=== PATIENT | male | born 1945 | race Caucasian/White ===

== ENCOUNTER → 2023-07-16 15:50 | Outpatient (REF) | payer MEDICARE, OTHER, SELFPAY | LOC: RAD 15:50 | PROVIDERS: ATTENDING PHYSICIAN Nurse Practitioner Family | DX: J18.0 Bronchopneumonia, unspecified organism (principal) | CPT/HCPCS: 71046 ==

== ENCOUNTER 2023-08-08 18:03 | Emergency (ER) | payer MEDICARE, OTHER, SELFPAY ==
[2023-08-08 18:07] VITALS: BP 150/88
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
[2023-08-08 20:57] VITALS: BP 156/91
== END 2023-08-08 21:01 | disposition home or self-care (01) ==
LOC: EMR 18:03
PROVIDERS: EMERGENCY PHYSICIAN Emergency Medicine; FAMILY PHYSICIAN Family Medicine
DX: S86.811A Strain of other muscle(s) and tendon(s) at lower leg level, right leg, initial encounter (principal); M79.651 Pain in right thigh; X58.XXXA Exposure to other specified factors, initial encounter; R60.0 Localized edema; I48.0 Paroxysmal atrial fibrillation; I83.93 Asymptomatic varicose veins of bilateral lower extremities; Z79.01 Long term (current) use of anticoagulants; Z79.899 Other long term (current) drug therapy; Z88.1 Allergy status to other antibiotic agents; Z91.040 Latex allergy status; Z88.5 Allergy status to narcotic agent; Z91.048 Other nonmedicinal substance allergy status
CPT/HCPCS: 99284; 93971

== ENCOUNTER → 2023-08-15 10:20 | Outpatient (REF) | payer MEDICARE, OTHER, SELFPAY ==
[2023-08-15 11:48] LABS: Erythrocyte Sed Rate 11 mm/hour (0-20)
[2023-08-15 11:54] LABS: ALT (SGPT) 30 U/L (0-50); AST (SGOT) 28 U/L (17-59); Alkaline Phosphatase 58 U/L (38-126); Blood Urea Nitrogen 13 mg/dl (9-20); Calcium 9.6 mg/dl (8.4-10.2); Carbon Dioxide 31 mmol/L (22-30); Chloride 100 mmol/L (98-107); Glucose 101 mg/dl (70-99); HDL Cholesterol 33 mg/dl; LDL Cholesterol, Calculated 60 mg/dl; Potassium 4.4 mmol/L (3.5-5.1); Sodium 137 mmol/L (135-145); Total Bilirubin 1.2 mg/dl (0.2-1.3); Total Cholesterol 115 mg/dl (50-199); Total Protein 6.4 g/dl (6.3-8.2); Triglyceride 113 mg/dl (10-149); Very Low Density Lipoprotein 22 mg/dl (0-30); eGFR > 60.00
[2023-08-15 12:11] LABS: Free T4 0.83 ng/dl (0.78-2.19)
[2023-08-15 12:25] LABS: PSA, Total - Screen 6.09 ng/ml (0.0-4.0); TSH 2.17 uIU/ml (0.47-4.68)
[2023-08-15 12:43] LABS: Glycohemoglobin (HgbA1c) 6.8 % (4.0-5.6)
[2023-08-18 01:56] LABS: IgA 219 mg/dl (70-400)
[2023-08-20 15:17] LABS: tTG IgA Antibody 5.6 EU/ml (0-19); tTG IgG Antibody 7.4 EU/ml (0-19)
== END ==
LOC: REG 10:20
PROVIDERS: ATTENDING PHYSICIAN Physician Assistant Medical; FAMILY PHYSICIAN Family Medicine
DX: R19.8 Other specified symptoms and signs involving the digestive system and abdomen (principal); Z00.00 Encounter for general adult medical examination without abnormal findings; I48.0 Paroxysmal atrial fibrillation; R73.03 Prediabetes; I10 Essential (primary) hypertension; Z79.01 Long term (current) use of anticoagulants; E78.5 Hyperlipidemia, unspecified; Z12.5 Encounter for screening for malignant neoplasm of prostate
CPT/HCPCS: 36415; 80053; 80061; 82784; 83036; 83516; 84439; 84443; 85652; 86140; G0103

== ENCOUNTER 2023-08-17 23:50 | Emergency (ER) | payer MEDICARE, OTHER, SELFPAY ==
[2023-08-18] VITALS (11 sets, daily range): BP systolic 116–179; BP diastolic 59–83; BMI 31.0
[2023-08-18] MEDS: LOW STRENGTH ASPIRIN 324 MG PO (00:04)
[2023-08-18] MEDS: NITROSTAT (SUBLINGUAL) 0.400000000000000022 MG SL (00:04)
--- NOTE | 2023-08-18 00:10 | ED.GENMED ---
History of Present Illness
General
Chief Complaint: Chest Pain
Source: patient
Time Seen by Provider: 08/18/23 00:00
Nursing documentation reviewed up to this point in time: agreed with
Travel History
Have you had any contact with someone who has COVID-19?: No
Do you have any symptoms of coronavirus? Fever > 100 degrees, chills, cough, shortness of breath, sore throat, loss of taste or smell, muscle aches, or headache?: No
History of Present Illness
History of Present Illness:
This a pleasant 78-year-old male that presents with sudden onset right-sided chest pain that was accompanied by shortness of breath. Patient states that the pain came on suddenly approximately 8 minutes prior to arrival. He reports no radiation.
Patient states that initially the pain was 8 out of 10 but over time it dropped down to 4 out of 10. Patient does have a history of atrial fibrillation and hypertension. He is unsure if he has had a myocardial infarction in the past. States that
he was feeling fine prior to the onset of pain. His drove him to the hospital.
Vital signs are stable. Patient not hypoxic
Nursing note reviewed. I agree with nursing documentation up to this point in time.
Home Meds and allergies reviewed.
NUMBER AND COMPLEXITY OF PROBLEMS ADDRESSED AT THE ENCOUNTER
� Chronic conditions affecting care: Hypertension, A-fib
� Acute Exacerbation and/or Progression of Chronic Illness: Acute illness
� Differential Diagnosis includes: Chest pain, musculoskeletal chest pain, gallbladder pain, abdominal pain, colitis, gastritis,
AMOUNT AND/OR COMPLEXITY OF DATA TO BE REVIEWED AND ANALYZED
I performed an independent evaluation of the following and my interpretation is:
EKG: Initial EKG shows normal sinus rhythm rate of 78 with right bundle branch block present. No evidence of acute ischemia present.
Repeat EKG shows normal sinus rhythm rate of 78 with right bundle branch block. Compared with previous EKG earlier tonight, similar morphology noted
CT:
X-rays:
Ultrasound:
Laboratory Studies: Initial troponin normal <0.012
Other:
Review of other/old records:
Clinical information was obtained by an independent historian:
Prescriptions/Medications Considered but not given:
Further testing considered but not performed:
RISK OF COMPLICATIONS AND/OR MORBIDITY OR MORTALITY OF PATIENT MANAGEMENT
Social determinants of health affecting care: Good Social Support, present at the bedside
Discussion with other providers:
Escalation of care including admission/observation vs risk of discharge considered:
CRITICAL CARE NOTE:
Total Time (exclusive of procedures):
Update:
Past History
Past History
ED Past Medical History: Arrthythmia (A fib)
ED Past Surgical History: Appendectomy and Orthopedic
Social History
Tobacco: Non-smoker
Drug: None
Personal:
Living: with family
Employment: Employed (Massage therapist)
Family History
Family History: Diabetes; Negative CAD or Sudden
Phy Exam
Physical Exam
Physical Exam:
Physical Exam
Vital signs and allergy list reviewed and agreed with.
GENERAL: Alert , in none apparent distress
EYE: pupils equal, EOMI, anicteric
NECK: Supple, no significant adenopathy. No masses. Trachea midline
ENT: Oropharynx is clear, mmm.
CARDIAC: Regular rate and rhythm . No M/R/G
LUNGS: Clear breath sounds bilaterally, no acute respiratory distress, no wheezes/rales/rhonchi
ABDOMEN: Soft, without focal tenderness, no r/g, no cvat. Normal BSx4q
NEUROLOGICAL: Alert and oriented, no focal neuro deficits
SKIN: Warm and dry, skin intact.
MUSCULOSKELETAL: No edema, well perfused. Moves all 4 extremities
PSYCH: Normal and appropriate interaction.
Scores
Heart Score for Chest Pain Patients
STEMI patient?: Not applicable
Course
Orders/Labs/Results
Orders:
Orders
08/17/23
Electrocardiogram (*1) Stat
Comment: DONE EMR
08/17/23 23:59
Aspirin Chewable [Low Strength Aspirin] 324 mg .ROUTE .STK-MED ONE
Nitroglycerin Sublingual [Nitrostat (Sublingual)] 0.4 mg .ROUTE .STK-MED ONE
08/18/23 00:00
EKG [Electrocardiogram (*1)] Urgent
Reason for Study: Chest Pain
Electrocardiogram (*1) Stat
Comment: DONE EMR
EKG- Treatment ONCE
08/18/23 00:02
Cardiac Monitoring- Treatment ONCE
08/18/23 00:03
Add On- LAB Urgent
Tests Added?: LIPASE
CMP [Comprehensive Metabolic Panel] Urgent
Complete Blood Count/With Diff Urgent
Lipase Urgent
Comment: ADD ON
Troponin I Urgent
Aspirin Chewable [Low Strength Aspirin] 324 mg PO NOW STA
08/18/23 00:04
Nitroglycerin Sublingual [Nitrostat (Sublingual)] 0.4 mg SL NOW STA
08/18/23 00:07
US Abdomen Complete/Upper Urgent
Comment:
Reason For Exam: RUQ abd pain
08/18/23 00:10
EKG- Treatment ONCE
08/18/23 03:00
Electrocardiogram (*1) Urgent
Reason for Study: Chest Pain
08/18/23 03:59
Troponin I Urgent
Urinalysis Reflex To Culture Urgent
Date Specimen was Collected: 08/18/23
Time Specimen was Collected: 03:54
Urine Microscopic Reflex Cult Urgent
Urine Culture Urgent
ABHILASH Source: U
Specimen Description:
Date Specimen was Collected: 08/18/23
Time Specimen was Collected: 03:54
08/18/23 04:28
CT Abd/pelvis W Iv Cont Urgent
Comment:
Reason For Exam: right sided abd pain
Abnormal Lab Results
08/18/23 08/18/23
00:03 03:59
RBC 4.69 L 10^6/uL
(4.70-6.10)
MPV 10.5 H fL
(7.4-10.4)
Abs Immat Gran (auto) 0.2 H 10^3/uL
(0-0.05)
Absolute Monos (auto) 0.8 H 10^3/uL
(0.1-0.6)
Immature Gran % 1.8 H %
(0-0.5)
Glucose 115 H mg/dl
(70-99)
Urine Ketones Trace A
(Negative)
Leukocyte Esterase Rfl Trace A
(Negative)
Urine Bacteria (Reflex) Moderate A
(Negative)
08/18/23 00:03
08/18/23 00:03
Vital Signs
Initial and Last Documented VS:
Initial Vital Signs
Pulse Resp Pulse Ox
76 18 98
08/17/23 23:52 08/17/23 23:52 08/17/23 23:52
Last Documented Vital Signs
Pulse Resp BP Pulse Ox
56 14 146/78 100
08/18/23 06:29 08/18/23 06:29 08/18/23 06:30 08/18/23 06:29
*Critical Care Note
Total Time (30-74mins, 75-104mins- exclusive of procedures): Not Applicable
Update Note
Update Note:
ULTRASOUND ABDOMEN COMPLETE
IMPRESSION:
Study is mildly limited by patient body habitus and bowel gas.
The gallbladder is unremarkable. No evidence for cholelithiasis.
Common bile duct is normal in size, measuring 4.5 mm.
Moderate to severe hepatic steatosis.
Small right renal cyst. No hydronephrosis bilaterally.
08/18/[address] ABDOMEN PELVIS WITH CONTRAST
COMPARISON: 03/18/2022
IMPRESSION:
Mild thickening of small bowel loops in the left abdomen without distention concerning for enteritis. No obstruction.
No evidence of diverticulitis or colitis. Normal appendix. No free air.
No obstructive uropathy.
Patient is resting comfortably. He has absolutely no symptoms. Negative Dumas sign. No McBurney's point tenderness. He states that his pain was in the right upper quadrant of his abdomen. 2 troponins negative. Labs essentially normal. Likely
biliary colic. Patient wishes to be discharged home. Discussed return to ER instructions with patient and . They verbalized good understanding. They will be discharged home is not stable and improved condition.
ED Attending Note
-
Portions of this chart may have been created with voice recognition software.� Occasional wrong word or��sound alike� substitutions may have occurred due to the inherent limitations of voice recognition software.
Discharge Plan
Departure
Patient Disposition: Home (Routine Discharge)
Date of Disposition: 08/18/23
Time of Disposition: 06:12
Patient with high blood pressure during this ER visit?: Yes
Condition: Good
Discharge Problem:
Abdominal pain, Biliary colic
Instructions: Gallstones (DC), Chest Pain CBC Follow Up, BLOOD PRESSURE
Prescriptions:
No Action
calcium 600 mg Capsule
600 mg PO DAILY
magnesium 500 mg Tablet
500 mg PO DAILY
ascorbic acid (vitamin C) [Vitamin C] 500 mg Tablet
500 mg PO DAILY
zinc 50 mg Capsule
50 mg PO DAILY
ferrous sulfate 27 mg iron Tablet
27 mg PO DAILY
potassium gluconate 595 mg (99 mg) Tablet
595 mg PO DAILY
cholecalciferol (vitamin D3) [Vitamin D3] 125 mcg (5,000 unit) Tablet
125 mcg PO DAILY
Centrum Silver Men 300-600-300 mcg Tablet
1 tab PO DAILY
Referrals:
Gino Morales MD [Family Provider] -
Activity Restrictions/Additional Instructions:
It was a pleasure meeting you and taking part in your care. We hope for your continued healing and wellness.
Please read discharge instructions in their entirety. However, they are for general education and may not describe your exact diagnosis at discharge. Information on your ER visit and medical conditions were discussed with you along with appropriate
follow up information...
If indicated, please take your medications as instructed and indicated on discharge paperwork.
Please schedule a follow up appointment as directed. Call to schedule an appointment
Please return to the emergency department with ANY change in, persisting, or worsening of symptoms. If any of your symptoms do not improve, or persist, or become more severe within 6-12 hours, please return to the emergency department for further
care.
Please return to the emergency department if you develop a headache, neck pain/stiffness, fever greater than 100.4F, chest pain, shortness of breath, persistent nausea, vomiting, slurred speech, difficulty walking, numbness/tingling, weakness, signs
of infection or any other symptoms that are worrisome to you.
If you have any questions or concerns please do not hesitate to call the Hospital at or E-mail me directly at [email or web address]
Interventions
Interventions:
*Risk Screen - Suicide Last Done: 08/18/23 00:10
*General Assessment Last Done: 08/18/23 00:10
*Neglect/Abuse Screening Last Done: 08/18/23 00:10
ED- Fall Risk Assessment Last Done: 08/18/23 00:10
*ED COVID-19 Vaccine History Last Done: 08/18/23 00:10
*Nursing Disposition Last Done: 08/18/23 06:37
ED- Cardiac Assessment Last Done: 08/18/23 00:10
Discharge Date and Time
Discharge Date/Time: 08/18/23 06:38
Print Language: SYRIAN
[2023-08-18 00:23] LABS: ALT (SGPT) 30 U/L (0-50); AST (SGOT) 29 U/L (17-59); Albumin 3.9 g/dl (3.5-5.0); Alkaline Phosphatase 61 U/L (38-126); Blood Urea Nitrogen 14 mg/dl (9-20); Calcium 9.8 mg/dl (8.4-10.2); Carbon Dioxide 26 mmol/L (22-30); Chloride 102 mmol/L (98-107); Estimated Creatinine Clearance 81 ml/min; Glucose 115 mg/dl (70-99); Sodium 139 mmol/L (135-145); Total Bilirubin 0.6 mg/dl (0.2-1.3); Total Protein 6.3 g/dl (6.3-8.2); eGFR > 60.00
[2023-08-18 00:29] LABS: % Basophils 0.8 % (0-2); % Eosinophils 1.8 % (0-6); % Immature Granulocytes 1.8 % (0-0.5); % Lymphocytes 31.2 % (20.5-51.1); % Monocytes 9.3 % (1.7-9.3); % Neutrophils 55.1 % (42.2-75.2); Absolute Basophils 0.1 10^3/uL (0-0.2); Absolute Eosinophils 0.2 10^3/uL (0-0.7); Absolute Immature Granulocytes 0.2 10^3/uL (0-0.05); Absolute Lymphocytes 2.8 10^3/uL (1.2-3.4); Absolute Monocytes 0.8 10^3/uL (0.1-0.6); Hematocrit 42.6 % (39.0-52.0); Hemoglobin 14.3 g/dL (13.0-18.0); Mean Corp Hgb Conc. 33.6 g/dL (33.0-37.0); Mean Corpuscular Hgb 30.5 pg (27.0-31.0); Mean Corpuscular Volume 90.8 fL (80.0-94.0); Mean Platelet Volume 10.5 fL (7.4-10.4); Nucleated Red Blood Cells % 0 % (-); Platelet Count 251 10^3/uL (130-400); Red Blood Cell Count 4.69 10^6/uL (4.70-6.10)
[2023-08-18 00:34] LABS: Troponin I < 0.012 ng/ml
[2023-08-18 00:43] LABS: Lipase 147 U/L (23-300)
[2023-08-18 04:13] LABS: Urine Albumin Trace (Neg - Trace); Urine Bilirubin Negative (Negative); Urine Character Slightly Cloudy (Clear); Urine Color Amber; Urine Glucose Negative (Negative); Urine Ketone Trace (Negative); Urine Leukocyte Trace (Negative); Urine Nitrite Negative (Negative); Urine Occult Blood Negative (Negative); Urine Specific Gravity 1.025 (<1.030); Urine Urobilinogen 1+ (Neg - 1+)
[2023-08-18 04:34] LABS: Urine Amorphous Seen; Urine Calcium Oxalate Crystals Seen; Urine Mucus Many
[2023-08-18 04:35] LABS: Urine Bacteria Moderate (Negative); Urine Red Blood Cell 0-2 /HPF (0-2)
[2023-08-18 04:36] LABS: Troponin I < 0.012 ng/ml
[2023-08-18 04:39] LABS: Urine Squamous Cell >30 /LPF (Few)
== END 2023-08-18 06:38 | disposition home or self-care (01) ==
LOC: EMR 23:50
PROVIDERS: EMERGENCY PHYSICIAN Student in an Organized Health Care Education/Training Program; FAMILY PHYSICIAN Family Medicine
DX: R10.11 Right upper quadrant pain (principal); K80.50 Calculus of bile duct without cholangitis or cholecystitis without obstruction; K76.0 Fatty (change of) liver, not elsewhere classified; N28.1 Cyst of kidney, acquired; I48.91 Unspecified atrial fibrillation; I10 Essential (primary) hypertension; Z88.1 Allergy status to other antibiotic agents; Z91.040 Latex allergy status; Z88.5 Allergy status to narcotic agent; Z91.048 Other nonmedicinal substance allergy status
CPT/HCPCS: 99285; 74177; 76700; 80053; 81003; 81015; 83690; 84484; 85025; 87086; 93005; Q9967

== ENCOUNTER → 2023-08-21 07:32 | Outpatient (REF) | payer MEDICARE, OTHER, SELFPAY ==
[2023-08-23 01:42] LABS: Fat, Fecal - Neutral Normal (Normal); Fat, Fecal - Split Normal (Normal)
[2023-08-24 07:27] LABS: Calprotectin, Fecal 12 ug/g (<=49)
[2023-08-24 08:10] LABS: Pancreatic Elastase, Fecal 556 ug/g (>=100)
== END ==
LOC: REG 07:32
PROVIDERS: ATTENDING PHYSICIAN Physician Assistant Medical
DX: R19.8 Other specified symptoms and signs involving the digestive system and abdomen (principal)
CPT/HCPCS: 82653; 82705; 83993

== ENCOUNTER 2023-11-14 09:28 | Emergency (ER) | payer MEDICARE, OTHER, SELFPAY ==
[2023-11-14 09:31] VITALS: BP 124/75
--- NOTE | 2023-11-14 09:55 | ED.SKININJ ---
HPI-Injury
General
Chief Complaint: Skin Surface Trauma
Source: patient
Exam Limitations: none
Time Seen by Provider: 11/14/23 09:54
Nursing documentation reviewed up to this point in time: agreed with
History of Present Illness-Injury
Initial Injury comments:
78-year-old male with history of HTN, A-fib on Eliquis presents with redness and swelling right lower leg past 3 days. Four days ago had an itchy spot behind right knee and scratched it. told him it looked like there was a bull's eye rash
around it and thought it may be a tick bite. The next day pt noted the swelling of the lower leg. Denies CP,SOB. Denies Fever/Chills.
Past History
Past History
ED Past Medical History: Arrthythmia (A fib)
ED Past Surgical History: Appendectomy and Orthopedic
Social History
Tobacco: Non-smoker
Alcohol: Occasional
Drug: None
Personal:
Living: with family
Employment: Employed (Massage therapist)
Family History
Family History: Diabetes; Negative CAD or Sudden
Review of Systems
Review of Systems
Allergies reviewed?: Yes
All Other Systems: ROS reviewed and negative except as documented in HPI and ROS
Constitutional: Denies fever or chills
Respiratory: Denies trouble breathing
Cardiac: Denies chest pain
ABD/GI: Denies abdominal pain or nausea
Musculoskeletal: Reports edema (swelling R lower leg); Denies joint pain
Skin: Reports other (redness right lower leg)
Neurological: Reports no symptoms
Phy Exam
Physical Exam
Physical Exam:
GENERAL: No acute distress. A&Ox3.
CONSTITUTIONAL: Afebrile.
EYES: PClear, conjunctivae normal
RESPIRATORY: Regular respirations, nonlabored, lungs clear.
CARDIOVASCULAR: Regular rate and rhythm, no murmurs, no rubs.
GI: Soft, nontender, normal BS
MUSCULOSKELETAL: Moves with ease. Well perfused.
SKIN: Warm, dry, pink, 5 mm scab R popliteal area, surrounding skin normal. Redness, tenderness and +1 swelling mid lower leg to ankle.
PSYCH: Normal mood and affect. Well kept, interactive and appropriate
NEUROLOGIC: Awake, alert and oriented. No focal neurological deficits
Course
Orders/Labs/Results
Orders:
Orders
11/14/23 10:03
US Periph Venous LOWER Ext RT Urgent
Comment:
Reason For Exam: swelling, redness
11/14/23 10:15
Complete Blood Count/With Diff Urgent
Comprehensive Metabolic Panel Urgent
Lyme Progressive Urgent
Abnormal Lab Results
11/14/23
10:15
RBC 4.66 L 10^6/uL
(4.70-6.10)
MCHC 32.9 L g/dL
(33.0-37.0)
MPV 10.6 H fL
(7.4-10.4)
Absolute Monos (auto) 0.9 H 10^3/uL
(0.1-0.6)
Monocytes % 12.3 H %
(1.7-9.3)
Glucose 117 H mg/dl
(70-99)
Total Bilirubin 1.6 H mg/dl
(0.2-1.3)
Total Protein 6.0 L g/dl
(6.3-8.2)
11/14/23 10:15
11/14/23 10:15
Vital Signs
Initial and Last Documented VS:
Initial Vital Signs
Temp Pulse Resp BP Pulse Ox
98.4 F 78 16 124/75 98
11/14/23 09:31 11/14/23 09:31 11/14/23 09:31 11/14/23 09:31 11/14/23 09:31
Last Documented Vital Signs
Temp Pulse Resp BP Pulse Ox
98.4 F 60 18 136/73 99
11/14/23 09:31 11/14/23 11:43 11/14/23 11:43 11/14/23 11:43 11/14/23 11:43
MDM/Problems Addressed
Differential Diagnosis Includes:
cellulitis, DVT, Lyme, injury with dependent edema
MDM/Problems Addressed:
78-year-old male with history of HTN, A-fib on Eliquis presents with redness and swelling right lower leg past 3 days. Four days ago had an itchy spot behind right knee and scratched it. told him it looked like there was a bull's eye rash
around it and thought it may be a tick bite. The next day pt noted the swelling of the lower leg. Denies CP,SOB. Denies Fever/Chills.
The area of the bite is 5 mm, scabbed over, no surrounding redness.
The reddened swollen area is well below this, mainly mid lower leg to ankle. Foot is not affected.
There is a tender slightly raised area mid stein pt states 'I might have' bumped it. This may have disrupted some minor blood vessels and on Eliquis micro bleeding causing dependent edema
Doubt DVT as he is anticoagulated.
CBC, CMP unremarkable.
US neg for DVT
Will treat for cellulitis, rx for Keflex sent to his pharmacy
He has compression stockings he can wear
Return signs discussed, all questions answered.
Most likely dependent edema from stein contusion, could be early cellulitis.
Lyme result pending
*Critical Care Note
Total Time (30-74mins, 75-104mins- exclusive of procedures): Not Applicable
ED Attending Note
-
Portions of this chart may have been created with voice recognition software.� Occasional wrong word or��sound alike� substitutions may have occurred due to the inherent limitations of voice recognition software.
Discharge Plan
Departure
Patient Disposition: Home (Routine Discharge)
Date of Disposition: 11/14/23
Time of Disposition: 12:14
Patient with high blood pressure during this ER visit?: No
Condition: Good
Discharge Problem:
Cellulitis of right lower extremity
Instructions: Cellulitis (Skin Infection), Adult ED
Prescriptions:
New
cephalexin 500 mg capsule
500 mg PO QID 7 Days Qty: 28 0RF
No Action
calcium 600 mg Capsule
600 mg PO DAILY
magnesium 500 mg Tablet
500 mg PO DAILY
ascorbic acid (vitamin C) [Vitamin C] 500 mg Tablet
500 mg PO DAILY
zinc 50 mg Capsule
50 mg PO DAILY
ferrous sulfate 27 mg iron Tablet
27 mg PO DAILY
potassium gluconate 595 mg (99 mg) Tablet
595 mg PO DAILY
cholecalciferol (vitamin D3) [Vitamin D3] 125 mcg (5,000 unit) Tablet
125 mcg PO DAILY
Centrum Silver Men 300-600-300 mcg Tablet
1 tab PO DAILY
Referrals:
Yaakov Moreira, [Family Provider] - Call in 1-3 days for appt
Activity Restrictions/Additional Instructions:
As we discussed, your blood work is normal.
Lyme test results will be back next week. If it is positive someone will notify you. If you do not hear anything by Friday next week, look on the portal or check with Dr. Moreira.
I don't believe the bug bite has anything to do with the swelling and redness in your lower leg.
It is possible you hit your stein on something (had a contusion) and with you being on blood thinner, it micro bled causing the swelling.
Contusions can become infected and cause cellulitis so I sent a prescription to your pharmacy for Keflex 500 mg 4 x a day for 7 days.
See your doctor next week for recheck.
Return here if you develop fever/chills, nausea/vomiting or feeling sicker in any way.
Wear a compression stocking and elevate the foot to the level of your heart as much as possible in the next 2 days to minimize swelling.
Interventions
Interventions:
*Risk Screen - Suicide Last Done: 11/14/23 09:31
*General Assessment Last Done: 11/14/23 09:31
*Neglect/Abuse Screening Last Done: 11/14/23 09:31
ED- Fall Risk Assessment Last Done: 11/14/23 10:09
*ED COVID-19 Vaccine History Last Done: 11/14/23 10:09
*Nursing Disposition Last Done: 11/14/23 12:40
ED-Skin Assessment Last Done: 11/14/23 10:09
Discharge Date and Time
Discharge Date/Time: 11/14/23 12:41
Print Language: CZECH
[2023-11-14 10:08] VITALS: BMI 30.6
[2023-11-14 10:09] VITALS: BP 131/76
[2023-11-14 10:37] LABS: % Basophils 0.6 % (0-2); % Eosinophils 1.7 % (0-6); % Immature Granulocytes 0.4 % (0-0.5); % Lymphocytes 26.6 % (20.5-51.1); % Monocytes 12.3 % (1.7-9.3); % Neutrophils 58.4 % (42.2-75.2); Absolute Eosinophils 0.1 10^3/uL (0-0.7); Absolute Lymphocytes 1.9 10^3/uL (1.2-3.4); Absolute Monocytes 0.9 10^3/uL (0.1-0.6); Absolute Neutrophils 4.2 10^3/uL (1.4-6.5); Hematocrit 42.5 % (39.0-52.0); Mean Corp Hgb Conc. 32.9 g/dL (33.0-37.0); Mean Corpuscular Volume 91.2 fL (80.0-94.0); Mean Platelet Volume 10.6 fL (7.4-10.4); Nucleated Red Blood Cells % 0 % (-); Platelet Count 188 10^3/uL (130-400); Red Blood Cell Count 4.66 10^6/uL (4.70-6.10); Red Cell Dist. Width 13.1 % (11.5-14.5); White Blood Cell Count 7.3 10^3/uL (4.8-10.8)
[2023-11-14 10:42] LABS: ALT (SGPT) 23 U/L (0-50); AST (SGOT) 21 U/L (17-59); Albumin 3.8 g/dl (3.5-5.0); Alkaline Phosphatase 56 U/L (38-126); Blood Urea Nitrogen 16 mg/dl (9-20); Calcium 9.1 mg/dl (8.4-10.2); Carbon Dioxide 30 mmol/L (22-30); Chloride 105 mmol/L (98-107); Estimated Creatinine Clearance 101 ml/min; Glucose 117 mg/dl (70-99); Sodium 138 mmol/L (135-145); Total Bilirubin 1.6 mg/dl (0.2-1.3); eGFR > 60.00
[2023-11-14 11:43] VITALS: BP 136/73
[2023-11-17 16:02] LABS: Lyme Antibody Screen, EIA Negative (Negative)
== END 2023-11-14 12:41 | disposition home or self-care (01) ==
LOC: EMR 09:28
PROVIDERS: Registered Nurse; EMERGENCY PHYSICIAN Student in an Organized Health Care Education/Training Program; FAMILY PHYSICIAN Family Medicine
DX: L03.115 Cellulitis of right lower limb (principal); R22.41 Localized swelling, mass and lump, right lower limb; I48.91 Unspecified atrial fibrillation; I10 Essential (primary) hypertension; Z79.01 Long term (current) use of anticoagulants; Z83.3 Family history of diabetes mellitus; Z90.49 Acquired absence of other specified parts of digestive tract
CPT/HCPCS: 99284; 80053; 85025; 86618; 93971

== ENCOUNTER → 2024-03-16 07:19 | Outpatient (REF) | payer MEDICARE, OTHER, SELFPAY ==
[2024-03-16 09:34] LABS: PSA, Total - Diagnostic 8.32 ng/ml (0.0-4.0)
== END ==
LOC: REG 07:19
PROVIDERS: ATTENDING PHYSICIAN Specialist; FAMILY PHYSICIAN Family Medicine
DX: R97.20 Elevated prostate specific antigen [PSA] (principal)
CPT/HCPCS: 36415; 84153

== ENCOUNTER → 2024-04-30 10:44 | Outpatient (REF) | payer MEDICARE, OTHER, SELFPAY | LOC: CLAB 10:44 | PROVIDERS: ATTENDING PHYSICIAN Specialist | DX: R97.20 Elevated prostate specific antigen [PSA] (principal) | CPT/HCPCS: 88305 ==

== ENCOUNTER → 2024-06-03 08:22 | Outpatient (REF) | payer MEDICARE, OTHER, SELFPAY ==
[2024-06-03 11:22] LABS: PSA, Total - Diagnostic 6.89 ng/ml (0.0-4.0)
== END ==
LOC: REG 08:22
PROVIDERS: ATTENDING PHYSICIAN Radiology Radiation Oncology; FAMILY PHYSICIAN Family Medicine
DX: C61 Malignant neoplasm of prostate (principal)
CPT/HCPCS: 36415; 84153; 84403

== ENCOUNTER → 2024-06-30 07:18 | Outpatient (REF) | payer MEDICARE, OTHER, SELFPAY ==
[2024-07-02 03:48] LABS: Gastrin 16 pg/mL (0-100)
[2024-07-02 16:12] LABS: Chromogranin A 100 ng/mL (0-187)
== END ==
LOC: REG 07:18
PROVIDERS: ATTENDING PHYSICIAN Physician Assistant Medical
DX: R19.5 Other fecal abnormalities (principal)
CPT/HCPCS: 36415; 82941; 84586; 86316

== ENCOUNTER → 2024-07-19 15:14 | Outpatient (REF) | payer MEDICARE, OTHER, SELFPAY | LOC: RAD 15:14 | PROVIDERS: ATTENDING PHYSICIAN Physician Assistant Medical | DX: M62.838 Other muscle spasm (principal); M54.2 Cervicalgia | CPT/HCPCS: 72050 ==

== ENCOUNTER → 2024-07-21 11:07 | Outpatient (REF) | payer MEDICARE, OTHER, SELFPAY ==
[2024-07-21 11:54] LABS: % Basophils 0.4 % (0-2); % Eosinophils 0.9 % (0-6); % Immature Granulocytes 0.4 % (0-0.5); % Lymphocytes 24.5 % (20.5-51.1); % Monocytes 5.1 % (1.7-9.3); % Neutrophils 68.7 % (42.2-75.2); Absolute Eosinophils 0.1 10^3/uL (0-0.7); Absolute Lymphocytes 1.4 10^3/uL (1.2-3.4); Absolute Monocytes 0.3 10^3/uL (0.1-0.6); Absolute Neutrophils 3.9 10^3/uL (1.4-6.5); Hematocrit 41.9 % (39.0-52.0); Hemoglobin 14.2 g/dL (13.0-18.0); Mean Corp Hgb Conc. 33.9 g/dL (33.0-37.0); Mean Corpuscular Volume 88.4 fL (80.0-94.0); Mean Platelet Volume 10.2 fL (7.4-10.4); Nucleated Red Blood Cells % 0 % (-); Platelet Count 189 10^3/uL (130-400); Red Blood Cell Count 4.74 10^6/uL (4.70-6.10); Red Cell Dist. Width 13.2 % (11.5-14.5); White Blood Cell Count 5.7 10^3/uL (4.8-10.8)
[2024-07-21 12:10] LABS: ALT (SGPT) 29 U/L (0-50); AST (SGOT) 26 U/L (17-59); Albumin 3.9 g/dl (3.5-5.0); Alkaline Phosphatase 65 U/L (38-126); Blood Urea Nitrogen 13 mg/dl (9-20); Calcium 9.7 mg/dl (8.4-10.2); Carbon Dioxide 30 mmol/L (22-30); Chloride 102 mmol/L (98-107); Glucose 159 mg/dl (70-99); Potassium 4.7 mmol/L (3.5-5.1); Sodium 138 mmol/L (135-145); Total Protein 6.3 g/dl (6.3-8.2); eGFR > 60.00
[2024-07-21 12:41] LABS: PSA, Total - Diagnostic 1.08 ng/ml (0.0-4.0)
[2024-07-21 12:44] LABS: Testosterone, Total 5.4 ng/dl (72-623)
== END ==
LOC: REG 11:07
PROVIDERS: ATTENDING PHYSICIAN Internal Medicine Medical Oncology; FAMILY PHYSICIAN Family Medicine
DX: C61 Malignant neoplasm of prostate (principal)
CPT/HCPCS: 36415; 80053; 84153; 84403; 85025

== ENCOUNTER 2024-08-02 16:07 | Outpatient (RCR) | payer MEDICARE, OTHER, SELFPAY | END 2024-08-02 23:59 | disposition home or self-care (01) | LOC: RPT 16:07 | PROVIDERS: ATTENDING PHYSICIAN Physician Assistant Medical; FAMILY PHYSICIAN Family Medicine | DX: M62.838 Other muscle spasm (principal); M54.2 Cervicalgia; Z73.6 Limitation of activities due to disability | CPT/HCPCS: 97010; 97110; 97162 ==

== ENCOUNTER 2024-08-18 09:48 | Emergency (ER) | payer MEDICARE, OTHER, SELFPAY ==
[2024-08-18 09:55] VITALS: BP 136/75
[2024-08-18 10:17] LABS: % Basophils 0.9 % (0-2); % Eosinophils 3.4 % (0-6); % Immature Granulocytes 0.4 % (0-0.5); % Lymphocytes 40.1 % (20.5-51.1); % Neutrophils 46.2 % (42.2-75.2); Absolute Basophils 0.1 10^3/uL (0-0.2); Absolute Eosinophils 0.2 10^3/uL (0-0.7); Absolute Lymphocytes 2.3 10^3/uL (1.2-3.4); Absolute Monocytes 0.5 10^3/uL (0.1-0.6); Absolute Neutrophils 2.6 10^3/uL (1.4-6.5); Hematocrit 38.1 % (39.0-52.0); Mean Corp Hgb Conc. 34.1 g/dL (33.0-37.0); Mean Corpuscular Hgb 30.4 pg (27.0-31.0); Mean Platelet Volume 10.4 fL (7.4-10.4); Nucleated Red Blood Cells % 0 % (-); Platelet Count 183 10^3/uL (130-400); Red Blood Cell Count 4.28 10^6/uL (4.70-6.10); Red Cell Dist. Width 13.7 % (11.5-14.5); White Blood Cell Count 5.6 10^3/uL (4.8-10.8)
[2024-08-18 10:35] LABS: ALT (SGPT) 20 U/L (0-50); AST (SGOT) 21 U/L (17-59); Albumin 3.5 g/dl (3.5-5.0); Alkaline Phosphatase 55 U/L (38-126); Blood Urea Nitrogen 17 mg/dl (9-20); Calcium 9.5 mg/dl (8.4-10.2); Carbon Dioxide 31 mmol/L (22-30); Chloride 107 mmol/L (98-107); Glucose 120 mg/dl (70-99); Lipase 155 U/L (23-300); Potassium 4.1 mmol/L (3.5-5.1); Sodium 141 mmol/L (135-145); Total Bilirubin 1.5 mg/dl (0.2-1.3); Total Protein 5.7 g/dl (6.3-8.2); eGFR > 60.00
[2024-08-18 10:46] LABS: Troponin I < 0.012 ng/ml
--- NOTE | 2024-08-18 11:16 | ED.GENMED ---
History of Present Illness
General
Chief Complaint: Chest Pain
Source: patient
Exam Limitations: none
Time Seen by Provider: 08/18/24 10:30
Nursing documentation reviewed up to this point in time: agreed with
History of Present Illness
History of Present Illness:
79-year-old male with past medical history of A-fib on Eliquis stage IV metastatic prostate cancer presents to the ER for evaluation of chest pain. Patient woke up at 7 AM and noticed left-sided discomfort in his chest, arm pain and jaw pain.
patient is asymptomatic presently .he denies any injury and symptoms occur during rest. He had no associated shortness of breath .he denies any associate nausea vomiting diaphoresis
he does admit to feelig very tired and wiped out.
Patient is followed at [facility] and Abiraterone was recently started about a week ago and he was questioning if this was the cause.
No prior history of MA.
Past History
Past History
ED Past Medical History: Arrthythmia (A fib)
ED Past Surgical History: Appendectomy and Orthopedic
Social History
Tobacco: Non-smoker
Alcohol: Occasional
Drug: None
Personal:
Living: with family
Employment: Employed (Massage therapist)
Family History
Family History: Diabetes; Negative CAD or Sudden
Review of Systems
Review of Systems
Allergies reviewed?: Yes
Other source history: family
All Other Systems: ROS reviewed and negative except as documented in HPI and ROS
Constitutional: Reports no symptoms; Denies fever, fatigue or chills
Respiratory: Reports no symptoms; Denies trouble breathing
Cardiac: Reports chest pain; Denies diaphoresis, palpitations or syncope
ABD/GI: Reports no symptoms
: Reports no symptoms
Musculoskeletal: Reports no symptoms
Skin: Reports no symptoms
Neurological: Reports no symptoms
Psychiatric: Reports no symptoms
Phy Exam
General Physical Exam
General Presentation: no apparent distress
General age: appears stated age
General Skin: warm and dry
General Habitus: normal
General Mental: alert
General Hydration: appears well hydrated
Cardiovascular Exam
Cardiovascular Exam: regular rate/rhythm, no murmur and normal peripheral pulses
Pulmonary Exam
Pulmonary Exam: lungs clear and no respiratory distress
Neurological Exam
Neurological Exam: alert and oriented x3
Musculoskeletal Exam
Musculoskeletal Exam: full ROM
Skin Exam
Skin Exam: normal color and warm/dry
Psychiatric Exam
Psychiatric Exam: normal mood/affect
Scores
Heart Score for Chest Pain Patients
STEMI patient?: Not applicable
Course
Orders/Labs/Results
Orders:
Orders
08/18/24 09:49
Electrocardiogram (*1) Urgent
Reason for Study: Chest Pain
EKG- Treatment ONCE
08/18/24 10:05
Complete Blood Count/With Diff Urgent
Comprehensive Metabolic Panel Urgent
Lipase Urgent
Troponin I Urgent
08/18/24 12:34
Chest [CR Chest - 2 Views ] Urgent
Comment:
Reason For Exam: cp
08/18/24 13:25
Electrocardiogram (*1) Stat
Reason for Study: Other
Other Reason for Exam: chest pain
EKG- Treatment ONCE
08/18/24 13:31
Troponin I Urgent
Abnormal Lab Results
08/18/24
10:05
RBC 4.28 L 10^6/uL
(4.70-6.10)
Hct 38.1 L %
(39.0-52.0)
Carbon Dioxide 31 H mmol/L
(22-30)
Glucose 120 H mg/dl
(70-99)
Total Bilirubin 1.5 H mg/dl
(0.2-1.3)
Total Protein 5.7 L g/dl
(6.3-8.2)
08/18/24 10:05
08/18/24 10:05
Vital Signs
Initial and Last Documented VS:
Initial Vital Signs
Temp Pulse Resp BP Pulse Ox
97.9 F 62 16 136/75 98
08/18/24 09:55 08/18/24 09:55 08/18/24 09:55 08/18/24 09:55 08/18/24 09:55
Last Documented Vital Signs
Temp Pulse Resp BP Pulse Ox
97.9 F 48 14 148/79 99
08/18/24 09:55 08/18/24 14:15 08/18/24 14:15 08/18/24 14:00 08/18/24 14:15
Instrumentation Tech consulted with Physician
Instrumentation Tech consulted with physician?: Yes
Name of Physician Consulted: Noh
MDM/Problems Addressed
Differential Diagnosis Includes:
Not limited musculoskeletal pain less likely ACS
MDM/Problems Addressed:
Patient is a 71-year-old male with history of A-fib on anticoagulation hypertension and prostate cancer presents for chest discomfort that occurred at rest this morning. He did feel some pain in his jaw. He had no associated shortness breath
nausea vomiting. no pain to back. no SOB.
He presented asymptomatic. No cardiac history other than A-fib. He presents awake alert no acute distress and has remained asymptomatic. No acute findings on EKG. Patient was monitored here and had 2 negative cardiac troponins and repeat EKG
also unremarkable. No acute findings on chest x-ray.
Case reviewed ED physician will place on chest pain hotline. Stable for discharge home.
*Radiology
Radiology exam reviewed: radiology read reviewed
*Pulse Oximetry
Patient hypoxic: no
*EKG
Interpreted by ED Provider?: Yes
Interpretation: normal
Comparison EKG: no changes
Heart Rate: 55
Rate: bradycardiac
Rhythm: sinus
Ischemia: other (repeat ekg unchanged )
*Critical Care Note
Total Time (30-74mins, 75-104mins- exclusive of procedures): Not Applicable
ED Attending Note
-
Portions of this chart may have been created with voice recognition software.� Occasional wrong word or��sound alike� substitutions may have occurred due to the inherent limitations of voice recognition software.
Discharge Plan
Departure
Patient Disposition: Home (Routine Discharge)
Date of Disposition: 08/18/24
Time of Disposition: 14:29
Patient with high blood pressure during this ER visit?: Yes
Condition: Fair
Covid-19: Not Applicable
Discharge Problem:
Chest pain
Instructions: Chest Pain CBC Follow Up
Prescriptions:
No Action
calcium 600 mg Capsule
600 mg PO DAILY
magnesium 500 mg Tablet
500 mg PO DAILY
ascorbic acid (vitamin C) [Vitamin C] 500 mg Tablet
500 mg PO DAILY
zinc 50 mg Capsule
50 mg PO DAILY
ferrous sulfate 27 mg iron Tablet
27 mg PO DAILY
potassium gluconate 595 mg (99 mg) Tablet
595 mg PO DAILY
cholecalciferol (vitamin D3) [Vitamin D3] 125 mcg (5,000 unit) Tablet
125 mcg PO DAILY
Centrum Silver Men 300-600-300 mcg Tablet
1 tab PO DAILY
cephalexin 500 mg capsule
500 mg PO QID 7 Days Qty: 28 0RF
Referrals:
Guilherme Rosa MD [Active] -
Yaakov Moreira DO [Family Provider] -
Activity Restrictions/Additional Instructions:
As discussed you were placed on the chest pain hotline which means you should receive a phone call in the next 1 to 2 days ;if you do not please give the office a call to schedule an appointment as soon as possible.
return if any worsening of symptoms.
In addition please follow with a [place] cancer specialist.
Interventions
Interventions:
*Risk Screen - Suicide Last Done: 08/18/24 12:27
*General Assessment Last Done: 08/18/24 12:27
*Neglect/Abuse Screening Last Done: 08/18/24 12:27
*ED- Fall Risk Assessment Last Done: 08/18/24 12:27
*ED COVID-19 Vaccine History Last Done: 08/18/24 12:27
ED- Cardiac Assessment Last Done: 08/18/24 12:27
Discharge Date and Time
Print Language: TAJIK
[2024-08-18 11:21] VITALS: BP 142/77
[2024-08-18 12:27] VITALS: BMI 30.6
[2024-08-18 13:00] VITALS: BP 147/104
[2024-08-18 14:00] VITALS: BP 148/79
[2024-08-18 14:06] LABS: Troponin I < 0.012 ng/ml
== END 2024-08-18 14:45 | disposition home or self-care (01) ==
LOC: EMR 09:48
PROVIDERS: Emergency Medicine; Nurse Practitioner; EMERGENCY PHYSICIAN Emergency Medicine; FAMILY PHYSICIAN Family Medicine
DX: R07.9 Chest pain, unspecified (principal); I48.91 Unspecified atrial fibrillation; C61 Malignant neoplasm of prostate; C79.9 Secondary malignant neoplasm of unspecified site; Z79.01 Long term (current) use of anticoagulants; Z90.49 Acquired absence of other specified parts of digestive tract
CPT/HCPCS: 99285; 71046; 80053; 83690; 84484; 85025; 93005

== ENCOUNTER 2024-09-07 06:27 | Outpatient (RCR) | payer MEDICARE, OTHER, SELFPAY | END 2024-09-07 23:59 | disposition home or self-care (01) | LOC: RPT 06:27 | PROVIDERS: ATTENDING PHYSICIAN Physician Assistant Medical; FAMILY PHYSICIAN Family Medicine | DX: M62.838 Other muscle spasm (principal); M54.2 Cervicalgia; Z73.6 Limitation of activities due to disability | CPT/HCPCS: 97110; 97140 ==

== ENCOUNTER → 2024-09-08 07:00 | Outpatient (REF) | payer MEDICARE, OTHER, SELFPAY ==
[2024-09-08 07:50] LABS: % Basophils 0.5 % (0-2); % Immature Granulocytes 0.5 % (0-0.5); % Lymphocytes 35.7 % (20.5-51.1); % Monocytes 9.5 % (1.7-9.3); % Neutrophils 50.8 % (42.2-75.2); Absolute Eosinophils 0.2 10^3/uL (0-0.7); Absolute Monocytes 0.5 10^3/uL (0.1-0.6); Absolute Neutrophils 2.9 10^3/uL (1.4-6.5); Hematocrit 41.4 % (39.0-52.0); Hemoglobin 13.9 g/dL (13.0-18.0); Mean Corp Hgb Conc. 33.6 g/dL (33.0-37.0); Mean Corpuscular Hgb 30.2 pg (27.0-31.0); Mean Platelet Volume 10.5 fL (7.4-10.4); Nucleated Red Blood Cells % 0 % (-); Platelet Count 188 10^3/uL (130-400); Red Cell Dist. Width 13.8 % (11.5-14.5); White Blood Cell Count 5.7 10^3/uL (4.8-10.8)
[2024-09-08 07:59] LABS: ALT (SGPT) 18 U/L (0-50); AST (SGOT) 19 U/L (17-59); Albumin 3.9 g/dl (3.5-5.0); Alkaline Phosphatase 55 U/L (38-126); Blood Urea Nitrogen 12 mg/dl (9-20); Calcium 9.7 mg/dl (8.4-10.2); Carbon Dioxide 30 mmol/L (22-30); Chloride 104 mmol/L (98-107); Glucose 124 mg/dl (70-99); Potassium 4.6 mmol/L (3.5-5.1); Sodium 142 mmol/L (135-145); Total Bilirubin 1.3 mg/dl (0.2-1.3); Total Protein 6.1 g/dl (6.3-8.2); eGFR > 60.00
[2024-09-08 08:24] LABS: PSA, Total - Diagnostic 0.26 ng/ml (0.0-4.0)
== END ==
LOC: REG 07:00
PROVIDERS: ATTENDING PHYSICIAN Internal Medicine Medical Oncology; FAMILY PHYSICIAN Family Medicine
DX: C61 Malignant neoplasm of prostate (principal)
CPT/HCPCS: 36415; 80053; 84153; 85025

== ENCOUNTER → 2024-11-29 08:10 | Outpatient (REF) | payer MEDICARE, OTHER, SELFPAY ==
[2024-11-29 09:29] LABS: Hematocrit 41.6 % (39.0-52.0); Hemoglobin 14.1 g/dL (13.0-18.0); Mean Corp Hgb Conc. 33.9 g/dL (33.0-37.0); Mean Corpuscular Volume 90.6 fL (80.0-94.0); Nucleated Red Blood Cells % 0 % (-); Platelet Count 177 10^3/uL (130-400); Red Cell Dist. Width 12.8 % (11.5-14.5)
[2024-11-29 10:02] LABS: ALT (SGPT) 26 U/L (0-50); AST (SGOT) 21 U/L (17-59); Albumin 3.9 g/dl (3.5-5.0); Alkaline Phosphatase 57 U/L (38-126); Blood Urea Nitrogen 19 mg/dl (9-20); Calcium 9.4 mg/dl (8.4-10.2); Carbon Dioxide 28 mmol/L (22-30); Chloride 106 mmol/L (98-107); Glucose 120 mg/dl (70-99); Potassium 4.1 mmol/L (3.5-5.1); Sodium 140 mmol/L (135-145); Total Protein 6.1 g/dl (6.3-8.2); eGFR > 60.00
[2024-11-29 10:23] LABS: PSA, Total - Diagnostic 0.09 ng/ml (0.0-4.0)
== END ==
LOC: REG 08:10
PROVIDERS: ATTENDING PHYSICIAN Physician Assistant Medical; FAMILY PHYSICIAN Family Medicine
DX: C61 Malignant neoplasm of prostate (principal)
CPT/HCPCS: 36415; 80053; 84153; 84403; 85025

== ENCOUNTER → 2025-02-14 07:55 | Outpatient (REF) | payer MEDICARE, OTHER, SELFPAY ==
[2025-02-14 09:54] LABS: Hematocrit 40.8 % (39.0-52.0); Hemoglobin 13.6 g/dL (13.0-18.0); Mean Corp Hgb Conc. 33.3 g/dL (33.0-37.0); Mean Corpuscular Volume 90.1 fL (80.0-94.0); Nucleated Red Blood Cells % 0 % (-); Platelet Count 210 10^3/uL (130-400); Red Cell Dist. Width 13.2 % (11.5-14.5)
[2025-02-14 10:32] LABS: ALT (SGPT) 36 U/L (0-50); AST (SGOT) 25 U/L (17-59); Albumin 3.9 g/dl (3.5-5.0); Alkaline Phosphatase 54 U/L (38-126); Blood Urea Nitrogen 16 mg/dl (9-20); Calcium 9.4 mg/dl (8.4-10.2); Carbon Dioxide 30 mmol/L (22-30); Chloride 104 mmol/L (98-107); Glucose 108 mg/dl (70-99); Sodium 139 mmol/L (135-145); Total Protein 6.1 g/dl (6.3-8.2); eGFR > 60.00
[2025-02-14 10:37] LABS: Potassium 4.2 mmol/L (3.5-5.1)
[2025-02-14 11:31] LABS: PSA, Total - Screen 0.07 ng/ml (0.0-4.0)
== END ==
LOC: REG 07:55
PROVIDERS: ATTENDING PHYSICIAN Internal Medicine Medical Oncology; FAMILY PHYSICIAN Family Medicine
DX: C61 Malignant neoplasm of prostate (principal); Z12.5 Encounter for screening for malignant neoplasm of prostate
CPT/HCPCS: 36415; 80053; 84403; 85025; G0103

== ENCOUNTER 2025-02-24 13:49 | Emergency (ER) | payer MEDICARE, OTHER, SELFPAY ==
[2025-02-24 13:52] VITALS: BP 162/90
[2025-02-24 14:49] VITALS: BP 128/72
--- NOTE | 2025-02-24 15:08 | ED.GENMED ---
History of Present Illness
General
Chief Complaint: Skin Surface Trauma
Source: patient
Time Seen by Provider: 02/24/25 14:13
History of Present Illness
History of Present Illness:
79-year-old male past medical history A-fib and hypertension presenting to the emergency department from urgent care for evaluation after he sustained a laceration to the dorsal aspect of his left hand at all using a chainsaw approximately 30
minutes prior to the ER. Patient initially went to urgent care and was referred to the ER with concern for possible fracture/tendon/nerve injury. Patient unsure of last tetanus, he is right-hand dominant, no other injuries were sustained.
Past History
Past History
ED Past Medical History: Arrthythmia (A fib) and HTN
ED Past Surgical History: Appendectomy, Orthopedic and Urological
Social History
Tobacco: Non-smoker
Alcohol: Occasional
Drug: None
Personal:
Living: with family
Employment: Employed (Massage therapist)
Family History
Family History: Diabetes; Negative CAD or Sudden
Review of Systems
Review of Systems
All Other Systems: ROS reviewed and negative except as documented in HPI and ROS
Phy Exam
Physical Exam
Physical Exam:
AAO times three, in nad. There is a large approximately 4 cm gaping laceration dorsal aspect of the left hand around the 5th and 4th metacarpal, tendon laceration visualized
Extrem: hand/wrist/fingers held in normal resting position except for the left little finger which is held slightly flexed compared to the rest of the digits
Flexor Tendons-Full active/passive ROM, nl flexion of all superficialis/profundus tendons against resistance
Extensor Tendons-Full active/passive ROM, patient unable to fully extend the left little finger
No FB seen on exam (s/p anesthesia)
Normal light tough/sharp/two point discrimination in all fingers except for the little finger which has diminished sensation along the lateral aspect of the hand compared to 1st-4th digits
Scores
Heart Failure Risk
Heart Failure Risk Score: Not Applicable
Heart Score for Chest Pain Patients
STEMI patient?: Not applicable
Withdrawal Assessment of Alcohol
Withdrawal Assessment Completed?: Not applicable
Course
Orders/Labs/Results
Orders:
Orders
02/24/25 14:13
CR Hand - Left Min 3 Views Urgent
Comment:
Reason For Exam: chainsaw laceration
02/24/25 14:14
Tetanus/Diphth/Acelpertussis [Adacel] 0.5 ml IM .ONCE ONE
Vital Signs
Initial and Last Documented VS:
Initial Vital Signs
Temp Pulse Resp BP Pulse Ox
98.2 F 82 16 162/90 99
02/24/25 13:52 02/24/25 13:52 02/24/25 13:52 02/24/25 13:52 02/24/25 13:52
Last Documented Vital Signs
Temp Pulse Resp BP Pulse Ox
98.2 F 82 16 128/72 99
02/24/25 13:52 02/24/25 13:52 02/24/25 13:52 02/24/25 14:49 02/24/25 15:10
Procedures
Laceration Closure
Left Hand:
Status of Wound: clean
Size of Wound in cm: 4
Description of Wound Edges: sharp
Preparation: cleaned with saline
Anesthesia: 1% Lidocaine
Revision/Debridement: routine- no revision
Wound exploration: explored to base- no FB
Type of Closure: single layer closure
Skin Closure Material: 5-0 nylon
Number of sutures: 9
MDM/Problems Addressed
Differential Diagnosis Includes:
Open Fracture
Tendon lac
Nerve lac
MDM/Problems Addressed:
79-year-old male presenting to the ER for evaluation following a extensive laceration to the dorsal aspect left hand from a chainsaw. Based off physical exam it is noted that patient has a tendon laceration and due to the lack to point
discrimination on the little finger I do have concern for a nerve laceration as well. X-ray was performed which does not show any fracture. I loosely sutured the epidermal layer skin as patient will need further evaluation by hand surgery. I
notified on-call [facility] as patient has seen them in the past for previous hand injury and they will ensure close follow-up with the patient. Will update patient's tetanus here as well as prescription for Keflex to go home. I
did prescribe the patient Percocet to take as needed for pain as well.
*Radiology
Radiology exam reviewed: preliminary read by ED provider (no fx)
*Pulse Oximetry
SaO2: 99
Oxygen Mode of Delivery: Room air
Patient hypoxic: no
*Critical Care Note
Total Time (30-74mins, 75-104mins- exclusive of procedures): Not Applicable
Patient Management
Discussion with other providers: Production Inspector
ED Attending Note
-
Portions of this chart may have been created with voice recognition software.� Occasional wrong word or��sound alike� substitutions may have occurred due to the inherent limitations of voice recognition software.
Discharge Plan
Departure
Patient Disposition: Home (Routine Discharge)
Date of Disposition: 02/24/25
Time of Disposition: 15:09
Patient with high blood pressure during this ER visit?: Yes
Discharge Problem:
Laceration of left hand involving extensor tendon
Instructions: Laceration Repair With Stitches (DC)
Prescriptions:
New
cephalexin 500 mg tablet
500 mg PO BID 7 Days Qty: 14 0RF
oxycodone-acetaminophen [Percocet] 5-325 mg tablet
1 tab PO Q6HPRN PRN (Reason: pain) Qty: 6 0RF
No Action
calcium 600 mg Capsule
600 mg PO DAILY
magnesium 500 mg Tablet
500 mg PO DAILY
ascorbic acid (vitamin C) [Vitamin C] 500 mg Tablet
500 mg PO DAILY
zinc 50 mg Capsule
50 mg PO DAILY
ferrous sulfate 27 mg iron Tablet
27 mg PO DAILY
potassium gluconate 595 mg (99 mg) Tablet
595 mg PO DAILY
cholecalciferol (vitamin D3) [Vitamin D3] 125 mcg (5,000 unit) Tablet
125 mcg PO DAILY
Centrum Silver Men 300-600-300 mcg Tablet
1 tab PO DAILY
cephalexin 500 mg capsule
500 mg PO QID 7 Days Qty: 28 0RF
Referrals:
Juvenal Singer MD [Active, Orthopedics]
UNKNOWN - PT DOES,NOT KNOW [Family Provider]
Interventions
Interventions:
*Risk Screen - Suicide Last Done: 02/24/25 13:52
*ED- Fall Risk Assessment Last Done: 02/24/25 13:52
*Nursing Disposition Last Done: 02/24/25 15:19
ED-Skin Assessment Last Done: 02/24/25 14:52
Discharge Date and Time
Discharge Date/Time: 02/24/25 15:19
Print Language: BELARUSIAN
[2025-02-24] MEDS: ADACEL 0.5 ML IM (15:12)
== END 2025-02-24 15:19 | disposition home or self-care (01) ==
LOC: EMR 13:49
PROVIDERS: EMERGENCY PHYSICIAN Student in an Organized Health Care Education/Training Program
DX: S61.412A Laceration without foreign body of left hand, initial encounter (principal); S66.327A Laceration of extensor muscle, fascia and tendon of left little finger at wrist and hand level, initial encounter; W29.3XXA Contact with powered garden and outdoor hand tools and machinery, initial encounter; I10 Essential (primary) hypertension; I48.91 Unspecified atrial fibrillation; Z23 Encounter for immunization
CPT/HCPCS: 12002; 90471; 99283; 73130; 90715

== ENCOUNTER → 2025-02-28 08:46 | Outpatient (REF) | payer MEDICARE, OTHER, SELFPAY ==
[2025-02-28 10:21] LABS: Hematocrit 41.6 % (39.0-52.0); Hemoglobin 13.5 g/dL (13.0-18.0); Mean Corp Hgb Conc. 32.5 g/dL (33.0-37.0); Mean Corpuscular Volume 90.8 fL (80.0-94.0); Nucleated Red Blood Cells % 0 % (-); Platelet Count 199 10^3/uL (130-400); Red Cell Dist. Width 13.0 % (11.5-14.5)
[2025-02-28 10:57] LABS: Blood Urea Nitrogen 12 mg/dl (9-20); Calcium 9.5 mg/dl (8.4-10.2); Carbon Dioxide 28 mmol/L (22-30); Chloride 105 mmol/L (98-107); Glucose 119 mg/dl (70-99); Potassium 3.9 mmol/L (3.5-5.1); Sodium 136 mmol/L (135-145); eGFR > 60.00
== END ==
LOC: REG 08:46
PROVIDERS: ATTENDING PHYSICIAN Orthopaedic Surgery
DX: Z01.818 Encounter for other preprocedural examination (principal)
CPT/HCPCS: 36415; 80048; 85025; 86850; 86900; 86901; 93005

== ENCOUNTER 2025-03-01 05:46 | Day surgery (SDC) | payer MEDICARE, OTHER, SELFPAY ==
[2025-03-01] VITALS (10 sets, daily range): BP systolic 133–162; BP diastolic 64–87; BMI 31.0
[2025-03-01] MEDS: TYLENOL 1000 MG PO (06:16)
[2025-03-01] MEDS: CELEBREX 200 MG PO (06:17)
[2025-03-01] MEDS: NORMOSOL-R/PLASMALYTE-A 1000 IV (06:45)
--- NOTE | 2025-03-01 10:21 | PTCARENOTE ---
Per Dr. Singer, patient can restart Paradaxa tomorrow 03/02/25.
== END 2025-03-01 10:20 | disposition home or self-care (01) ==
LOC: SDS 05:46
PROVIDERS: ATTENDING PHYSICIAN Orthopaedic Surgery
DX: S66.822A Laceration of other specified muscles, fascia and tendons at wrist and hand level, left hand, initial encounter (principal); W29.3XXA Contact with powered garden and outdoor hand tools and machinery, initial encounter
CPT/HCPCS: 26350; 86900; 86901

== ENCOUNTER → 2025-03-10 08:38 | Outpatient (REF) | payer OTHER, MEDICARE, SELFPAY | LOC: RAD 08:38 | PROVIDERS: ATTENDING PHYSICIAN Physician Assistant Medical; FAMILY PHYSICIAN Family Medicine | DX: C61 Malignant neoplasm of prostate (principal) | CPT/HCPCS: 78306; A9503 ==

== ENCOUNTER → 2025-03-11 15:18 | Outpatient (REF) | payer MEDICARE, OTHER, SELFPAY | LOC: RAD 15:18 | PROVIDERS: ATTENDING PHYSICIAN Physician Assistant Medical; FAMILY PHYSICIAN Family Medicine | DX: C61 Malignant neoplasm of prostate (principal) | CPT/HCPCS: 71260; 74177; Q9967 ==

== ENCOUNTER → 2025-05-10 07:30 | Outpatient (REF) | payer MEDICARE, OTHER, SELFPAY ==
[2025-05-10 08:30] LABS: Hematocrit 41.2 % (39.0-52.0); Hemoglobin 13.9 g/dL (13.0-18.0); Mean Corp Hgb Conc. 33.7 g/dL (33.0-37.0); Mean Corpuscular Volume 90.4 fL (80.0-94.0); Nucleated Red Blood Cells % 0 % (-); Platelet Count 198 10^3/uL (130-400); Red Cell Dist. Width 13.0 % (11.5-14.5)
[2025-05-10 08:48] LABS: ALT (SGPT) 53 U/L (0-50); AST (SGOT) 37 U/L (17-59); Albumin 3.9 g/dl (3.5-5.0); Alkaline Phosphatase 69 U/L (38-126); Blood Urea Nitrogen 13 mg/dl (9-20); Calcium 9.4 mg/dl (8.4-10.2); Carbon Dioxide 30 mmol/L (22-30); Chloride 103 mmol/L (98-107); Glucose 126 mg/dl (70-99); Potassium 4.5 mmol/L (3.5-5.1); Sodium 137 mmol/L (135-145); Total Protein 6.3 g/dl (6.3-8.2); eGFR > 60.00
[2025-05-10 09:19] LABS: PSA, Total - Diagnostic < 0.06 ng/ml (0.0-4.0)
== END ==
LOC: REG 07:30
PROVIDERS: ATTENDING PHYSICIAN Physician Assistant Medical; FAMILY PHYSICIAN Family Medicine
DX: C61 Malignant neoplasm of prostate (principal)
CPT/HCPCS: 36415; 80053; 84153; 84403; 85025